=== PATIENT | male | born 1960 | race Caucasian/White ===

== ENCOUNTER 2017-03-15 09:20 | Emergency (ER) | payer BC, OTHER ==
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
[2017-03-15 11:11] VITALS: BP 140/84
== END 2017-03-15 11:25 | disposition home or self-care (01) ==
LOC: UCCORT 09:20
DX: T20.06XA Burn of unspecified degree of forehead and cheek, initial encounter (principal); H02.845 Edema of left lower eyelid; X08.8XXA Exposure to other specified smoke, fire and flames, initial encounter
CPT/HCPCS: 99202; G0463